=== PATIENT | male | born 1955 | race Caucasian/White ===

== ENCOUNTER 2020-06-23 23:11 | Emergency (ER) | payer OTHER ==
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
[2020-06-24] MEDS ORDERED: predniSONE 20 MG TABLET PO STA (01:10)
[2020-06-24] MEDS ORDERED: HYDROcod/ACET 5/325 Prepack 4 PO STA (01:10)
[2020-06-24 01:32] VITALS: BP 108/65
--- NOTE | 2020-06-24 08:33 | XRAY Report ---
PROCEDURE: Knee 3 View LT INDICATIONS: pain/swelling/injury TECHNIQUE: 3 views of the left knee(s) were acquired. COMPARISON: None. FINDINGS: Bones: No fractures or dislocations. No suspicious bony lesions. Mild tricompartmental osteoarthrit is. Soft tissues: Large suprapatellar joint effusion. No suspicious soft tissue calcifications. IMPRESSION: 1. No fracture. No acute osseous lesion. If there is continued clinical concern for pathology, then r epeat plain film radiographs (7-10 days) or advanced imaging (CT, MR, bone scan) should be considered for further evaluation. 2. Large nonspecific joint effusion. Internal derangement cannot be excluded. Reviewed by: Karli Goel MD, PhD on 06/24/2020 8:32 AM PDT Approved by: Karli Goel MD, PhD on 06/24/2020 8:32 AM PDT Station ID: [id number]
== END 2020-06-24 01:50 | disposition home or self-care (01) ==
LOC: ED 23:11
DX: M25.462 Effusion, left knee (principal); M25.562 Pain in left knee; M10.072 Idiopathic gout, left ankle and foot; M17.12 Unilateral primary osteoarthritis, left knee; I10 Essential (primary) hypertension
CPT/HCPCS: 73562; 99283; 99284; J7512

== ENCOUNTER 2021-06-11 15:16 | Emergency (ER) | payer MEDICARE, OTHER ==
[2021-06-11 15:43] VITALS: BP 169/106
[2021-06-11] MEDS ORDERED: HYDROcod/ACETAM 5/325 MG TABLET PO STA (16:06)
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
== END 2021-06-11 17:13 | disposition home or self-care (01) ==
LOC: ED 15:16
DX: M54.50 Low back pain, unspecified (principal); G89.29 Other chronic pain
CPT/HCPCS: 99282; 99283

== ENCOUNTER 2021-06-22 13:15 | Outpatient (CLI) | payer MEDICARE, OTHER ==
--- NOTE | 2021-06-29 02:21 | XRAY Report ---
PROCEDURE: Lumbar Spine 2 View INDICATIONS: ACUTE ON CHRONIC LOW BACK PAIN TECHNIQUE: 2 views of the lumbar spine were acquired. In addition, images of the hips and sacroilia c joints were acquired. Images are available for interpretation on 06/28/2021. COMPARISON: None. FINDINGS: Bones: 5 [id number] vertebrae are present. There is trace retrolisthesis of L2 on L3, L3 on L4 . Moderate disc and foraminal narrowing is present at L4-5, moderate to severe at L5-S1. There is sup erior endplate deformity at L1 of indeterminate age. . No suspicious bony lesions. Bilateral sacroi liac joint fusion are present. There is deformity of the right pubic ramus possibly related to prior trauma and/or surgery. Minimal early arthritic changes are present within the hips. Soft tissues: Overlying bowel gas pattern is normal. No suspicious soft tissue calcifications. IMPRESSION: 1. Degenerative changes within the lower lumbar spine as above. Reviewed by: Willa Garcia MD on 06/29/2021 1:18 AM PDT Approved by: Willa Garcia MD on 06/29/2021 1:18 AM PDT Station ID: [id number]
--- NOTE | 2021-06-29 10:42 | XRAY Report ---
PROCEDURE: Hips 2V BILAT INDICATIONS: PAIN IN HIP, BILATERAL TECHNIQUE: 3 views of the hip were acquired. COMPARISON: None. FINDINGS: No acute fracture. Lumbar spondylosis and facet arthropathy, partially visualized lateral curvature. Screw fixation of both SI joints. Hardware appears intact. No evidence of loosening. There is expecte d alignment. Minimal bilateral hip degeneration. Chronic fracture deformity and callus involving the inferior and superior pubic ramus on the right. There is mild decreased anterior femoral head neck of fset on the right. IMPRESSION: Chronic posttraumatic and post surgical changes as detailed above. Slight decrease in right femoral head neck offset which raises possibility of femoral acetabular impi ngement syndrome (CAM-type) in the appropriate clinical context. Mild bilateral hip joint degeneration. Reviewed by: Kaden Cuadra MD on 06/29/2021 10:40 AM PDT Approved by: Kaden Cuadra MD on 06/29/2021 10:40 AM PDT Station ID: [id number]
== END 2021-06-22 13:16 | disposition home or self-care (01) ==
LOC: DI.N 13:15
PROVIDERS: ATTEND Physician Assistant
DX: M54.50 Low back pain, unspecified (principal); G89.29 Other chronic pain; Z98.890 Other specified postprocedural states; M16.0 Bilateral primary osteoarthritis of hip; R93.6 Abnormal findings on diagnostic imaging of limbs

== ENCOUNTER 2021-12-17 13:34 | Emergency (ER) | payer MEDICARE, OTHER ==
[2021-12-17 13:41] VITALS: BP 186/128
[2021-12-17] MEDS ORDERED: LIDOCAINE-MPF 2% 5 ML VIAL SUBQ STA (13:41)
[2021-12-17] MEDS ORDERED: TETANUS/DIPHTHERIA/PERTUSSIS 0.5 ML SYRINGE IM ONE (14:15)
--- NOTE | 2021-12-17 14:17 | ED Physician Documentation ---
PD HPI UPPER EXT INJURY - Stated complaint Stated Complaint: LAC LT INDEX - Chief complaint Chief Complaint: Laceration - History obtained from History obtained from: Patient, Family - History of Present Illness Location: Left, Finger (index) Type of injury: Crush Where injury occurred: Home Timing - onset: Today Timing - duration: Hours Timing - details: Abrupt onset, Still present Improved by: Rest, Immobilization Worsened by: Moving Associated symptoms: No: Weakness, Numbness, Tingling Contributing factors: No: Anticoagulated Similar symptoms before: Diagnosis (laceration) Recently seen: Not recently seen - Additonal information Additional information: Previously well 66-year-old male was working on a car today when he smashed his finger between a bernie pin and the tire rim. He has a laceration to the pulp of the fingertip of the left index. Review of Systems Constitutional: denies: Fever Respiratory: denies: Cough GI: denies: Vomiting, Diarrhea Skin: reports: Laceration (s) PD PAST MEDICAL HISTORY - Past Medical History Cardiovascular: Hypertension, Atrial fibrillation GI: GERD - Past Surgical History Past Surgical History: Yes - Present Medications Home Medications: Ambulatory Orders Medication Instructions Recorded Confirmed Metoprolol Tartrate 06/23/20 Omeprazole 06/23/20 hydroCHLOROthiazide 06/23/20 [Hydrochlorothiazide] lisinopriL [Prinivil] 06/23/20 HYDROcod/ACETAM 5/325 [Citra 5/325] 1 - 2 ea PO Q6H PRN #10 tablet 06/24/20 predniSONE [Prednisone] 60 mg PO DAILY #15 tablet 06/24/20 HYDROcod/ACETAM 5/325 [Citra 5/325] 1 - 2 ea PO Q6H PRN #14 tablet 06/11/21 - Allergies Allergies/Adverse Reactions: Allergies Allergy/AdvReac Type Severity Reaction Status Date / Time Sulfa (Sulfonamide Allergy Rash Verified 12/17/21 13:40 Antibiotics) - Social History Does the pt smoke?: No Smoking Status: Never smoker Does the pt drink ETOH?: No Does the pt have substance abuse?: No - Immunizations Immunizations are current?: No Immunizations: TDAP >10years/unknown - POLST Patient has POLST: No PD ED PE NORMAL - Vitals Vital signs reviewed: Yes (hypertensive ) - General General: Alert and oriented X 3, No acute distress, Well developed/nourished - HEENT HEENT: Atraumatic, PERRL, EOMI - Respiratory Respiratory: No respiratory distress - Derm Derm: Normal color, Warm and dry, No rash - Extremities Extremities: Other (There is a subungual hematoma to the left index finger and a 2 cm laceration to the pulp of the tip of the finger. There is no foreign material in the wound) - Neuro Neuro: Alert and oriented X 3, rayon coner 2-12 intact, No motor deficit, No sensory deficit, Normal speech Eye Opening: Spontaneous Motor: Obeys Commands Verbal: Oriented GCS Score: 15 - Psych Psych: Normal mood, Normal affect Results - Vitals Vitals: Vital Signs - 24 hr 12/17/21 13:36 Temperature 36.5 C Heart Rate 80 Respiratory 16 Rate Blood Pressure 186/128 H O2 Saturation 98 Oxygen O2 Source Room air Procedures - Laceration (location) Left index Wound type: Irregular, Into subcut fat, Clean Neurovascular status: Sensory intact, Motor intact, Vascular intact Anesthesia: Lidocaine 1% Wound preparation: Hibiclens, Irrigated copiously NS, Wound explored, To the base Skin layer closure: Nylon, Interrupted, Size #-0 - enter number (5-0) Other: Patient tolerated well, No complications, Neurovascular intact, Dressing applied, Tetanus booster given PD MEDICAL DECISION MAKING - ED course Complexity details: reviewed results, re-evaluated patient, considered differential, d/w patient ED course: 66-year-old male with a laceration to his left index finger has a wound cleansed and sutured he is not up-to-date on his tetanus and he is given a tetanus booster. Departure - Departure Disposition: 01 Home, Self Care Clinical Impression: Laceration of index finger Qualifiers: Encounter type: initial encounter Damage to nail status: with damage Foreign body presence: without foreign body Laterality: left Qualified Code(s): S61.311A - Laceration without foreign body of left index finger with damage to nail, initial encounter Condition: Stable Instructions: ED Laceration Hand Follow-Up: DARREN OLSON PA-C [Primary Care Provider] - Comments: Sutures will need to be removed in 7 to 10 days
== END 2021-12-17 14:29 | disposition home or self-care (01) ==
LOC: ED 13:34
DX: S61.311A Laceration without foreign body of left index finger with damage to nail, initial encounter (principal); W23.1XXA Caught, crushed, jammed, or pinched between stationary objects, initial encounter; Y93.89 Activity, other specified; Y92.009 Unspecified place in unspecified non-institutional (private) residence as the place of occurrence of the external cause
CPT/HCPCS: 12001; 90471; 99283

== ENCOUNTER 2022-03-14 02:51 | Emergency (ER) | payer MEDICARE, OTHER ==
[2022-03-14] MEDS ORDERED: SODIUM CHLORIDE 0.9% 500 ML IV STA (03:22)
[2022-03-14 03:29] LABS: CLARITY,URINE SL. CLOUDY (CLEAR); GLUCOSE, URINE (UA) NEGATIVE (NEGATIVE); KETONES,URINE (UA) NEGATIVE (NEGATIVE); LEUKOCYTE ESTERASE, URINE LARGE (NEGATIVE); NITRITE,URINE POSITIVE (NEGATIVE); OCCULT BLOOD,URINE LARGE (NEGATIVE); PH,URINE 6.5 PH (5.0-7.5); UROBILINOGEN,URINE 0.2 (NORMAL) E.U./dL (NORMAL)
[2022-03-14 03:36] LABS: BACTERIA,URINE Rare /HPF (None Seen); BILIRUBIN,URINE NEGATIVE (NEGATIVE); ICTOTEST,URINE NEGATIVE; RBC,URINE TNTC /HPF (0-5); SQUAMOUS EPITHELIAL CELL,UR RARE Squamous (<= Few); WBC,URINE >25 /HPF (0-3)
--- NOTE | 2022-03-14 03:36 | ED Physician Documentation ---
PD HPI MALE - Stated complaint Stated Complaint: BLOOD IN URINE - Chief complaint Chief Complaint: UTI - History obtained from History obtained from: Patient - Additional information Additional information: Patient is a 66-year-old male with a history of atrial fibrillation presenting for evaluation of hematuria starting this evening. Over the course of the last few weeks he has had 2 rounds of treatment for urinary tract infections. He reports his symptoms have been dysuria. He is unsure of the name of the antibiotics but on review of outpatient antibiotics it looks like he was given Macrobid January 31 for a 7-day course. After finishing the Macrobid he then continued to have symptoms and called his doctor who called in a prescription for him which she reports completing.Over the course of the last few days he is again felt dysuria And noticed a milky color to his urine. Dysuria was not as bad as previous so he did not seek reevaluation by his PCP for it. This evening when he went to urinate he noticed a small amount of blood And otherwise clear urine. Over the last few hours he has had a an increasing amount of blood and clots in his urine At one point did have difficulty initiating a urine stream until he expelled a clot. He denies having abdominal pain, vomiting or diarrhea. He has a history of A. fib but is not on a blood thinner. He does take a daily full dose aspirin as recommended by his PCP. He denies fever, weight loss, chest pain or difficulty breathing. Review of Systems Constitutional: denies: Fever Nose: denies: Congestion Cardiac: denies: Chest pain / pressure Respiratory: denies: Dyspnea GI: denies: Abdominal Pain, Vomiting : reports: Dysuria, Hematuria Skin: denies: Rash Musculoskeletal: denies: Back pain Neurologic: denies: Headache PD PAST MEDICAL HISTORY - Past Medical History Past Medical History: Yes Cardiovascular: Hypertension, Atrial fibrillation GI: GERD Musculoskeletal: Gout - Past Surgical History Past Surgical History: Yes - Present Medications Home Medications: Ambulatory Orders Medication Instructions Recorded Confirmed Metoprolol Tartrate 06/23/20 Omeprazole 06/23/20 hydroCHLOROthiazide 06/23/20 [Hydrochlorothiazide] lisinopriL [Prinivil] 06/23/20 HYDROcod/ACETAM 5/325 [Purchase 5/325] 1 - 2 ea PO Q6H PRN #10 tablet 06/24/20 predniSONE [Prednisone] 60 mg PO DAILY #15 tablet 06/24/20 HYDROcod/ACETAM 5/325 [Purchase 5/325] 1 - 2 ea PO Q6H PRN #14 tablet 06/11/21 - Allergies Allergies/Adverse Reactions: Allergies Allergy/AdvReac Type Severity Reaction Status Date / Time Sulfa (Sulfonamide Allergy Rash Verified 12/17/21 13:40 Antibiotics) - Social History Does the pt smoke?: No Smoking Status: Never smoker Does the pt drink ETOH?: No Does the pt have substance abuse?: No - Immunizations Immunizations are current?: No Immunizations: TDAP >10years/unknown - POLST Patient has POLST: No PD ED PE NORMAL - General General: Alert and oriented X 3, No acute distress, Well developed/nourished - HEENT HEENT: Atraumatic, Moist mucous membranes - Neck Neck: Supple, no meningeal sign - Cardiac Cardiac: RRR, No murmur, Strong equal pulses - Respiratory Respiratory: No respiratory distress, Clear bilaterally - Abdomen Abdomen: Normal bowel sounds, Soft, Non tender, Non distended - Back Back: No CVA TTP - Derm Derm: Warm and dry - Extremities Extremities: No edema - Neuro Neuro: Normal speech Results - Vitals Vitals: Vital Signs - 24 hr 03/14/22 03/14/22 03/14/22 03:10 03:21 05:21 Temperature 37.1 C 35.4 C L Heart Rate 86 86 85 Respiratory 20 20 18 Rate Blood Pressure 158/98 H 158/98 H 160/100 H O2 Saturation 100 100 98 Oxygen O2 Source Room air - Labs Labs: Laboratory Tests 03/14/22 03/14/22 03/14/22 03:00 03:30 03:30 WBC 9.4 RBC 5.43 Hgb 16.4 Hct 48.9 MCV 90.1 MCH 30.2 MCHC 33.5 RDW 14.6 Plt Count 224 MPV 11.1 Neut # (Auto) 6.1 Lymph # (Auto) 2.1 Day # (Auto) 0.9 Eos # (Auto) 0.2 Baso # (Auto) 0.0 Absolute Nucleated RBC 0.00 Nucleated RBC % 0.0 PT INR Sodium 132 L Potassium 4.1 Chloride 97 L Carbon Dioxide 27 Anion Gap 8.0 BUN 23 H Creatinine 1.1 Estimated GFR (MDRD) 67 L Glucose 124 H Calcium 9.0 Urine Color RED/BLOODY Urine Clarity SL. CLOUDY Urine pH 6.5 Ur Specific [place] 1.010 Urine Protein Urine Glucose (UA) NEGATIVE Urine Ketones NEGATIVE Urine Occult Blood LARGE H Urine Nitrite POSITIVE H Urine Bilirubin NEGATIVE Urine Urobilinogen 0.2 (NORMAL) Ur Leukocyte Esterase LARGE H Urine RBC TNTC H Urine WBC >25 H Ur Squamous Epith Cells RARE Squamous Urine Bacteria Rare Ur Microscopic Review INDICATED Urine Culture Comments INDICATED SARS-CoV-2 (PCR) 03/14/22 03/14/22 03:30 05:51 WBC RBC Hgb Hct MCV MCH MCHC RDW Plt Count MPV Neut # (Auto) Lymph # (Auto) Day # (Auto) Eos # (Auto) Baso # (Auto) Absolute Nucleated RBC Nucleated RBC % PT 11.4 INR 1.0 Sodium Potassium Chloride Carbon Dioxide Anion Gap BUN Creatinine Estimated GFR (MDRD) Glucose Calcium Urine Color Urine Clarity Urine pH Ur Specific [place] Urine Protein Urine Glucose (UA) Urine Ketones Urine Occult Blood Urine Nitrite Urine Bilirubin Urine Urobilinogen Ur Leukocyte Esterase Urine RBC Urine WBC Ur Squamous Epith Cells Urine Bacteria Ur Microscopic Review Urine Culture Comments SARS-CoV-2 (PCR) NOT DETECTED PD MEDICAL DECISION MAKING - ED course Complexity details: reviewed results, re-evaluated patient, d/w patient, d/w family ED course: Patient with recent history of urinary tract infections and more recently having "milky colored" urine and mild dysuria presenting for evaluation of gross hematuria. Vital signs of been stable. Labs reviewed with mild hyponatremia. CT scan without significant findings. Patient continues to Have gross hematuria with passage of clots and post void bladder scans ranging around 300 mL. No urology services available here at [facility] and patient has never seen a urologist. He likely will require transfer to a facility with urology capabilities. Three-way catheter for continuous bladder irrigation was ordered. RN unable to pass 22 Catheter very far into urethra without meeting resistance. She is reaching out to yard warehouse worker to find smaller size There would still allow for irrigation. 0710 - Pt Awaiting transfer to facility with urology capabilities.Care turned over to Dr. Steve at shift change. Departure - Departure Disposition: 02 Transfer Acute Care Hosp Clinical Impression: Persistent gross hematuria Condition: Stable
[2022-03-14 03:41] LABS: BASOPHILS % (AUTO) 0.4 %; EOSINOPHILS # (AUTO) 0.2 10^3/uL (0.0-0.7); EOSINOPHILS % (AUTO) 1.8 %; HCT - HEMATOCRIT 48.9 % (42.0-52.0); HGB - HEMOGLOBIN 16.4 g/dL (14.0-18.0); LYMPHOCYTES # (AUTO) 2.1 10^3/uL (1.5-3.5); LYMPHOCYTES % (AUTO) 22.6 %; MEAN CORPUSCULAR HEMOGLOBIN 30.2 pg (27.0-31.0); MEAN CORPUSCULAR HGB CONC 33.5 g/dL (32.0-36.0); MEAN CORPUSCULAR VOLUME 90.1 fL (80.0-94.0); MEAN PLATELET VOLUME 11.1 fL (7.4-11.4); MONOCYTES # (AUTO) 0.9 10^3/uL (0.0-1.0); MONOCYTES % (AUTO) 9.4 %; NEUTROPHILS # (AUTO) 6.1 10^3/uL (1.5-6.6); NEUTROPHILS % (AUTO) 65.5 %; PLT - PLATELET COUNT 224 10^3/uL (130-450); RED BLOOD COUNT 5.43 10^6/uL (4.70-6.10); RED CELL DISTRIBUTION WIDTH 14.6 % (12.0-15.0); WHITE BLOOD COUNT 9.4 x10^3/uL (4.8-10.8)
[2022-03-14 03:48] LABS: PT - PROTHROMBIN TIME 11.4 secs (9.9-12.6)
[2022-03-14 03:50] LABS: CREATININE 1.1 mg/dL (0.6-1.2); POTASSIUM 4.1 mmol/L (3.5-5.0)
[2022-03-14] MEDS ORDERED: cefTRIAXone 1 GM in SODIUM CHLORIDE 0.9% MINIBAG 100 ML IV STA (05:44)
[2022-03-14] MEDS ORDERED: cefTRIAXone 1 GM VIAL ONE (06:10)
[2022-03-14] MEDS ORDERED: MIDAZOLAM 2 MG/2 ML VIAL IVP STA (09:18)
[2022-03-14] MEDS ORDERED: fentaNYL 100 MCG/2 ML VIAL IVP STA (09:18)
[2022-03-14] MEDS ORDERED: LIDOCAINE 2% URO-JET 5 ML SYRINGE UR STA (09:56)
--- NOTE | 2022-03-14 10:26 | CT Report ---
PROCEDURE: Abdomen/Pelvis WO INDICATIONS: hemturia TECHNIQUE: Noncontrast 5 mm thick sections acquired from the diaphragms to the symphysis. 5 mm coronal and sagi ttal reformats were then performed. For radiation dose reduction, the following was used: automated exposure control, adjustment of mA and/or kV according to patient size. COMPARISON: None. FINDINGS: Image quality: Excellent. ABDOMEN: Lung bases: There is a 2 mm nodule in the right middle lobe. Lung bases are otherwise clear. Heart size is normal. Small hiatal hernia. Solid organs: Kidneys are normal in size. There is a 3 mm stone mid left kidney. No hydronephrosis. No ureteral stones. Liver and spleen are normal in size. Mild hepatic steatosis. Gallbladder contains gallstones. Pancre as is normal in contours. No adrenal nodules. Peritoneum and bowel: Unenhanced bowel loops demonstrate normal wall thickness and caliber. No free fluid or air. Nodes and vessels: No retroperitoneal or mesenteric adenopathy by size criteria. Aorta and inferior vena cava are normal in caliber. Miscellaneous: No ventral hernias. PELVIS: Genitourinary: Bladder wall thickness is normal. Miscellaneous: No inguinal hernias or adenopathy. Bones: No suspicious bony lesions. No vertebral body compression fractures. Degenerative changes i n lumbar spine. Arthrodesis of the SI joints bilaterally. IMPRESSION: 1. There is a 2 mm nonobstructive stone in left kidney. No hydronephrosis. 2. Cholelithiasis. 3. Hepatic steatosis. 4. Small hiatal hernia. 5. A 3 mm nodule in the right middle lobe. Please see enclosed follow-up recommendation. No significant discrepancy with the preliminary interpretation. Fleischner Society criteria for SOLID lung nodule followup. Nodule size (mm)Low-risk patientHigh-risk patient "d4No follow-up neededFollow-up at 12 mo; if no change, no further follow-up >8-4Klfmlp-wd CT at 12 mo; if no change, no further follow-up needed.Initial follow-up CT at 6-12 mo, then 18-24 mo if no change. >6-8Initial follow-up CT at 6-12 mo, then 18-24 mo if no change. Initial follow-up CT at 3-6 mo, then 9-12 mo and 24 mo if no change. >8Follow-up CT at 3, 9, 24 mo. Or PET and/or biopsy.Same as for low-risk pts. Reviewed by: Keron French MD on 03/14/2022 10:25 AM PDT Approved by: Keron French MD on 03/14/2022 10:25 AM PDT Station ID: [id number]
[2022-03-14] MEDS ORDERED: LIDOCAINE VISCOUS 2% 15 ML UDC MM STA (11:44)
[2022-03-14 12:55] LABS: HCT - HEMATOCRIT 46.4 % (42.0-52.0); HGB - HEMOGLOBIN 15.7 g/dL (14.0-18.0)
[2022-03-14 14:39] VITALS: BP 149/106
--- NOTE | 2022-03-14 14:45 | ED Physician Documentation ---
ED Addendum - Addendum Addendum: 03/14/22 14:45 I was able to speak with [facility] urology clinic in [place], Dr. Mai will be able to see the patient tomorrow at 9:30 AM. He requested that I initiate the patient on ciprofloxacin for UTI control, as long as the patient is able to clear his urine he can be discharged with the [place] in place and he will see him tomorrow morning at 9:30 AM. Repeat H&H stable. Urine pink tinged without blood. Patient and his are in agreement with plan. Departure - Departure Disposition: Home, Self Care Clinical Impression: Persistent gross hematuria Condition: Stable Instructions: Hematuria, Catheter Indwelling Urinary Dc, Leg Bag Care Dc Prescriptions: Ciprofloxacin HCl 1 tablet PO BID 10 Days #20 tablet
== END 2022-03-14 15:17 | disposition home or self-care (01) ==
LOC: ED 02:51
DX: R31.0 Gross hematuria (principal); E87.1 Hypo-osmolality and hyponatremia; Z87.440 Personal history of urinary (tract) infections; I48.91 Unspecified atrial fibrillation; Z79.82 Long term (current) use of aspirin; Z20.822 Contact with and (suspected) exposure to COVID-19; I10 Essential (primary) hypertension
CPT/HCPCS: 36415; 80048; 81001; 81003; 85014; 85018; 85025; 85610; 87077; 87086; 96365; 96375; 99284

== ENCOUNTER 2024-02-05 16:11 | Outpatient (CLI) | payer MEDICARE | END 2024-02-05 23:59 | disposition critical access hospital (66) | LOC: EMS 16:11 | DX: R07.89 Other chest pain (principal); R20.0 Anesthesia of skin; I10 Essential (primary) hypertension | CPT/HCPCS: A0425; A0427 ==

== ENCOUNTER 2024-02-05 16:27 | Emergency (ER) | payer MEDICARE, OTHER ==
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
[2024-02-05] MEDS: NITROGLYCERIN 2% PASTE TOP STA (16:59)
[2024-02-05 17:07] LABS: BASOPHILS % (AUTO) 0.5 %; EOSINOPHILS % (AUTO) 0.5 %; HCT - HEMATOCRIT 51.6 % (42.0-52.0); HGB - HEMOGLOBIN 17.3 g/dL (14.0-18.0); LYMPHOCYTES # (AUTO) 1.3 10^3/uL (1.5-3.5); LYMPHOCYTES % (AUTO) 14.9 %; MEAN CORPUSCULAR HEMOGLOBIN 30.5 pg (27.0-31.0); MEAN CORPUSCULAR HGB CONC 33.5 g/dL (32.0-36.0); MEAN CORPUSCULAR VOLUME 90.8 fL (80.0-94.0); MONOCYTES # (AUTO) 0.6 10^3/uL (0.0-1.0); MONOCYTES % (AUTO) 6.9 %; NEUTROPHILS # (AUTO) 6.9 10^3/uL (1.5-6.6); NEUTROPHILS % (AUTO) 77.1 %; PLT - PLATELET COUNT 229 10^3/uL (130-450); RED BLOOD COUNT 5.68 10^6/uL (4.70-6.10); RED CELL DISTRIBUTION WIDTH 14.2 % (12.0-15.0); WHITE BLOOD COUNT 8.9 x10^3/uL (4.8-10.8)
--- NOTE | 2024-02-05 17:16 | XRAY Report ---
PROCEDURE: Chest 1V INDICATIONS: Chest Pain TECHNIQUE: One view of the chest was acquired. COMPARISON: None. FINDINGS: Surgical changes and devices: None. Lungs and pleura: No pleural effusions or pneumothorax. Lungs are clear. Mediastinum: Mediastinal contours appear normal. Heart size is normal. Bones and chest wall: No suspicious bony lesions. Overlying soft tissues appear unremarkable. IMPRESSION: No acute cardiopulmonary process. Reviewed by: Gabriel Alba MD on 02/05/2024 5:14 PM PDT Approved by: Gabriel Alba MD on 02/05/2024 5:14 PM PDT Station ID: [id number]
[2024-02-05 17:29] LABS: ALBUMIN 4.3 g/dL (3.2-5.5); ALBUMIN/GLOBULIN RATIO 1.7 (1.0-2.2); BILIRUBIN,TOTAL 0.7 mg/dL (0.2-1.0); CALCIUM 9.9 mg/dL (8.5-10.3); CREATININE 1.3 mg/dL (0.6-1.3); POTASSIUM 5.3 mmol/L (3.5-4.5); TOTAL PROTEIN 6.8 g/dL (6.4-8.9)
[2024-02-05 17:41] LABS: TROPONIN I HIGH SENSITIVITY 31.6 ng/L (2.3-19.7)
[2024-02-05] MEDS: METOPROLOL 5 MG/5 ML VIAL IVP STA (18:42)
[2024-02-05] MEDS: ENOXAPARIN 100 MG/ML SYRINGE SUBQ STA (18:43)
[2024-02-05] MEDS: METOPROLOL TARTRATE 50 MG TABLET PO STA (18:43)
[2024-02-05] MEDS: ATORVASTATIN 40 MG TABLET PO STA (18:43)
[2024-02-05] MEDS ORDERED: ONDANSETRON 4 MG/2 ML VIAL IVP PRN (22:37)
[2024-02-05] MEDS ORDERED: ACETAMINOPHEN 500 MG TABLET PO PRN (22:37)
[2024-02-05] MEDS: CALCIUM CARBONATE CHEW 500 MG TABLET PO STA (23:33)
--- NOTE | 2024-02-06 00:18 | ED Physician Documentation ---
ED Addendum - Addendum Addendum: 02/06/24 00:17 Patient endorsed to me by Dr. Mullen awaiting transfer to [facility] for unstable angina. 02/06/24 06:50 Impression 1. unstable angina 2. chest pain Disposition transfer Condition stable
[2024-02-06] MEDS: FAMOTIDINE 20 MG/2 ML VIAL IVP STA (02:03)
[2024-02-06 02:24] VITALS: BP 153/109; O2SAT 97
[2024-02-06] MEDS ORDERED: PANTOPRAZOLE 40 MG TABLET PO SCH (07:00)
[2024-02-06] MEDS ORDERED: METOPROLOL TARTRATE 25 MG TABLET PO SCH (09:00)
[2024-02-06] MEDS ORDERED: ASPIRIN CHEW 81 MG TABLET PO SCH (09:00)
[2024-02-06] MEDS ORDERED: lisinopriL 5 MG TABLET PO SCH (09:00)
[2024-02-06] MEDS ORDERED: ENOXAPARIN 100 MG/ML SYRINGE SUBQ SCH (09:00)
[2024-02-06] MEDS ORDERED: ATORVASTATIN 40 MG TABLET PO SCH (21:00)
== END 2024-02-06 03:51 | disposition short-term general hospital (02) ==
LOC: EDUNIT# → ED 16:27
DX: I20.0 Unstable angina (principal); R07.9 Chest pain, unspecified; I10 Essential (primary) hypertension; I48.91 Unspecified atrial fibrillation; Z79.899 Other long term (current) drug therapy
CPT/HCPCS: 36415; 71045; 80053; 83690; 84484; 85025; 93005; 96372; 96374; 96375; 99285; A9270; J1650; 80048

== ENCOUNTER 2024-02-06 03:44 | Outpatient (CLI) | payer MEDICARE | END 2024-02-06 23:59 | disposition short-term general hospital (02) | LOC: EMS 03:44 | PROVIDERS: ATTEND Emergency Medicine | DX: I20.0 Unstable angina (principal) | CPT/HCPCS: A0425; A0428 ==